=== PATIENT | female | born 1960 | race Asian ===

== ENCOUNTER 2025-07-07 15:16 | Outpatient (RCR) | payer OTHER, SELFPAY | END 2025-07-07 23:59 | disposition home or self-care (01) | LOC: RPT 15:16 | PROVIDERS: ATTENDING PHYSICIAN Obstetrics & Gynecology Gynecology; FAMILY PHYSICIAN Internal Medicine | DX: R32 Unspecified urinary incontinence (principal); Z73.6 Limitation of activities due to disability; M62.81 Muscle weakness (generalized) | CPT/HCPCS: 97110; 97112; 97161; 97530 ==